=== PATIENT | male | born 1990 | race Caucasian/White ===

== ENCOUNTER 2024-01-28 15:14 | Emergency (ER) | payer MEDICAID, SELFPAY ==
--- NOTE | 2024-01-28 15:26 | PC.CC ---
Pt Mike Gutierrez is a 33 yr old male to ED on 5150 hold placed by [facility] for DTS. Pt is from [facility]. Pt placed on hold for reports that he attempted to harm himself on 01/27/24 with saji serena. Pt endorsing SI to [facility]. At this time pt is pending medical clearance for eval.
[2024-01-28 15:35] VITALS: BP 117/82; PULSE 101; TEMP 36.9; O2SAT 98
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
[2024-01-28 16:02] LABS: Basophils % (Auto) 0 % (0-2.5); Eosinophils % (Auto) 0 % (0-10); Hematocrit 42.2 % (41.0-53.0); Hemoglobin 14.3 g/dL (13.5-16.0); Immature Granulocytes % (Auto) 0 % (0-0); Immature Granulocytes Auto 0.01 Thou/mm3 (0.00-0.00); Lymphocytes # (Auto) 2.3 Thou/mm3 (1.0-4.8); Lymphocytes % (Auto) 31 % (10-50); Mean Corpuscular HGB Conc 33.9 g/dl (31.0-37.0); Mean Corpuscular Hemoglobin 30.6 pg (25.0-35.0); Mean Corpuscular Volume 90 fL (80-100); Monocytes # (Auto) 0.5 Thou/mm3 (0.0-0.8); Monocytes % (Auto) 6 % (0-12); Neutrophils # (Auto) 4.7 Thou/mm3 (1.8-7.7); Neutrophils % (Auto) 63 % (37-80); Nucleated Red Blood Cell % 0 /100 WBC (0); Platelet Count 223 Thou/mm3 (140-440); RDW Standard Deviation 38.8 fL (35.1-43.9); Red Blood Count 4.68 Miln/mm3 (4.50-5.90); White Blood Count 7.5 Thou/mm3 (3.8-10.6)
[2024-01-28 16:40] VITALS: PULSE 102; RESP 18; O2SAT 98; BMI 25.0
[2024-01-28 16:50] LABS: Alanine Aminotransferase < 7 U/L (10-49); Albumin, Serum 4.4 gm/dL (3.5-5.0); Albumin/Globulin Ratio 2.2 (1.2-2.2); Alcohol, Blood Medical < 3.0 mg/dL (0-10.0); Alkaline Phosphatase 109 U/L (46-116); Anion Gap 5 (7-16); Aspartate Amino Transferase 11 U/L (0-34); BUN/Creatinine Ratio 6 Ratio (12-20); Bilirubin,Total 0.4 mg/dL (0.3-1.2); Blood Urea Nitrogen 7 mg/dL (9-23); Calcium 9.4 mg/dL (8.3-10.6); Calcium (Corrected) 9.4 mg/dL (8.5-10.1); Carbon Dioxide 27.6 mMol/L (20.0-31.0); Chloride 107 mMol/L (98-107); Creatinine (Component) 1.1 mg/dL (0.6-1.3); Glucose 81 mg/dL (74-106); Osmolality,Calculated 276 (275-295); Potassium 4.5 mMol/L (3.4-5.1); Sodium 140 mMol/L (136-145); Total Protein 6.4 gm/dL (5.7-8.2); eGFR > 60 See Note
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
--- NOTE | 2024-01-28 17:11 | PC.NURSE ---
Pt. ambulated to with Asad MACIAS.
[2024-01-28 18:32] VITALS: BP 130/90; PULSE 90; RESP 18; TEMP 36.4; O2SAT 99
[2024-01-28 19:38] LABS: Collection Type, Urine Clean Catch; Squamous Epithelial Cell,Urine 0 /hpf (0-5)
[2024-01-28 19:56] LABS: Bilirubin,Urine Negative (Negative); Blood,Urine Negative (Negative); Clarity,Urine Clear (Clear/Hazy); Color,Urine Lt-Yellow (Lt Yel-Yel); Culture Indicated,Urine Not Indicated; Glucose, Urine Negative (Negative); Ketones,Urine Negative (Negative); Leukocyte Esterase,Urine Negative (Negative); Nitrite,Urine Negative (Negative); Protein,Urine Negative (Neg - Trace); RBC,Urine < 1 /hpf (0-3); Specific Gravity,Urine 1.012 (1.001-1.035); Urobilinogen,Urine Negative mg/dL (0.0-1.0); WBC,Urine < 1 /hpf (0-5)
[2024-01-28 20:09] LABS: Amphetamine/Methamp Scrn,U Negative (Negative); Barbiturate Screen,Urine Negative (Negative); Benzodiazepines Screen,Urine Negative (Negative); Benzoylecgonine Screen, Ur Negative (Negative); Fentanyl Screen,Urine Negative (Negative); Opiate Screen,Urine Negative (Negative); THC Screen,Urine Negative (Negative)
[2024-01-29 02:13] VITALS: BP 142/84; PULSE 87; RESP 16; TEMP 36.6; O2SAT 100
--- NOTE | 2024-01-29 02:20 | PD.EDADDENDU ---
Emergency Room Addendum Addendum Narrative: 2300: Care assumed from Sara Cantor NP. Past medical, surgical, social and family history reviewed. Vitals and home medications reviewed. Results and treatment plan discussed. I will assume the care of the patient at this time and will follow the patient, pending crisis evaluation. Please refer to the emergency department record for history and examination from initial visit. Patient was placed in observation for treatment and monitoring of psychiatric symptoms, at 2300 01/28/2024. Symptoms consist of suicidal ideation and depression. Treatment plan includes psychiatric consult, reassessments, and possible placement into psychiatric facility. The patient had access and provided personal hygiene, shower, food, water, and daily medications. 0600: Care signed out to Dr. Ling (emergency physician). Past medical, surgical, social and family history reviewed. Vitals and home medications reviewed. Results and treatment plan discussed. They will assume the care of the patient at this time and will follow the patient, pending crisis evaluation. At this time, observation has ended.
[2024-01-29 06:28] VITALS: BP 118/76; PULSE 94; RESP 18; TEMP 36.8; O2SAT 97
--- NOTE | 2024-01-29 07:45 | PC.CC ---
Addendum entered by Gary Brownlee II 01/29/24 18:41: 1211-Call to Mr. Moser to discuss outcome of assessment. Mr. Moser informed of reasoning and cobb for pt to return to [facility]. Per Mr. Moser he will staff case with superiors to determine if pt is able to return to facility with staff providing transport. 1250-Call back from Mr. Moser, [facility] will accept pt back with staff providing transport. ETA is 45 mins. Original Note: Pt Mike Gutierrez is a 33 yr old male to ED [facility]. Pt is from [facility] in [place]. [facility] placed 5150 on pt due to DTS. From hold [facility] responded to call for male pt making statements to want to harm himself. On 01/27/24 pt was making threats to harm himself with garden serean. At this time pt has been medically cleared for evaluation. Plan is for ASW to follow up with [facility] staff to confirm if pt is LPS conserved.
[2024-01-29 08:17] VITALS: BP 131/81; PULSE 82; RESP 16; TEMP 36.7; O2SAT 97
--- NOTE | 2024-01-29 10:25 | PC.NURSE ---
PATIENT CONTINUES TO SLEEP, ABLE TO BE ARROUSED, CALM AT THIS TIME. WILL CONTINUE TO MONITOR. 1 TO 1 SITTER AT BEDSIDE.
--- NOTE | 2024-01-29 10:54 | EDNOTE_ITS ---
Emergency Room Addendum <Louies Humphries - Last Filed: 01/29/24 13:02> Addendum Narrative: [address] Anderson, the previous shift emergency physician. Past medical, surgical, social and family history reviewed. Vitals and home medications reviewed. Results and treatment plan discussed. The patient was placed in ED observation care at 0600 01/29/2024, pending mental health evaluation. Please refer to the emergency department record for history and examination.? While in ED observation the pt will have access to water, food, and personal hygiene. If the pt takes home medication(s), they will be continued in ED observation. 1118: Patient has been evaluated by our ASW and has rescinded the 5150 hold. State they will safety plan with the facility patient resides at. <Parmjit Ling MD - Last Filed: 01/29/24 13:49> Addendum Narrative: [address] Anderson, the previous shift emergency physician. Pas t medical, surgical, social and family history reviewed. Vitals and home medications reviewed. Results and treatment plan discussed. The patient was placed in ED observation care at 0600 01/29/2024, pending mental health evaluation. Please refer to the emergency department record for history and examination.? While in ED observation the pt will have access to water, food, and personal hygiene. If the pt takes home medication(s), they will be continued in ED observation. 1118: Patient has been evaluated by our ASW and has rescinded the 5150 hold. State they will safety plan with the facility patient resides at. 1:48 [place] vp digital marketing social media and crm/mental health has cleared the patient a 5150. He said the patient can go back to the alf. Way came from. Diagnosis: Suicidal ideation Conditions: Stable upon discharge DC instruction: Follow-up with medical doctor. Follow-up with mental health. Return to the ER for any problem
[2024-01-29 11:49] VITALS: BP 130/87; PULSE 83; RESP 17; TEMP 36.6; O2SAT 98
--- NOTE | 2024-01-29 14:02 | PC.NURSE ---
CONTACTED ONEL BARRIOS, CONSERVATOR FOR TRANSPORT HOME. STATES HE WILL BE HERE IN APPROX 15 MINUTES. PATIENT MADE AWARE AND WILL WAIT IN ROOM FOR DISCHARGE.
[2024-01-29 14:08] VITALS: BP 132/80; PULSE 87; RESP 17; TEMP 36.4; O2SAT 98
--- NOTE | 2024-01-29 17:32 | PC.CC ---
Pt Erik Gutierrez is a 33 yr old male to ED on 5150 hold placed by [facility] for DTS. From hold [facility] dispatched to pts residential hold at [facility]. Pt verbally reporting SI. [facility] noted that pt was able to attain garden serena, on 01/27/24 and was stating he was going to harm himself. ASW met with pt at bedside. ASW introduced self and role in pt care. Pt informed for reason for encounter. Pt expressed understanding he is on 5150 hold placed by [facility] for DTS. At time of encounter pt is noted to be sitting on gurney. Pt is alert and oriented to person, place and situation. Pt noted to speak in clear even tone, keeping constant eye contact. Pts mood appears normal. Pt calm and cooperative. Pt able to confirm the events over the last 2 days. Pt unable to specify a trigger for thoughts and actions. Pt expresses that he is grateful that he is alive and states he is glad that help was sought for him. Pt states that at this time he is not suicidal or homicidal. Pt cannot identify any coping skills to reduce symptoms. Pt reports that he is currently not connected to traditional MH services. Pt denies any auditory or visual hallucinations. Pt reports he has a dx of schizophrenia, and is prescribed medications, though is uncertain about names of his medications. Pt reports compliance with his daily medication management. Pt states that he has been at [facility] for the last 2 months. Pt is from [facility] and confirms that he is conserved. Pt unable to specify type of conservatorship he is under. Pt reports most recent hospitalization was 2 months ago, in [place]. Pt states he is uncertain why he was placed. Pt states he is willing to safety plan and would like to return to [facility] to resume his daily routine. Pt informed that case will be staffed to determine outcome. Pt expressed understanding. Collateral Information: 08-Call to traffic administrator of [facility] Parmjit Monsivaisantes [phone]. ASW identified self and role in pt care and reason for call. Mr. Moser confirmed that pt is conserved through [facility], conservator name is Kip Hoyt [phone]. Per Mr. Moser he has informed on-call after hours conservator department for [facility], speaking to Daniel Mojica, who will convey information to service team. Mr Moser states that pt has been at [facility] for 40 days and is on 45 day probationary period. Per Mr. Moser pt seems to be have been triggered by recent family visit to [facility]. Mr. Moser states he is uncertain about family dynamic and and if anything transpired between pt and family members. Mr. Moser did confirm that pt did access gardening serena on an outing, though it is uncertain how pt accessed them. Mr. Moser is unable to specify type of conservatorship pt is under at this time. ASW confirmed that case will be staffed and outcome will be presented to him. Mr. Moser is in agreement with plan. 0940-Call to [facility] Precious lAbarran, case staffed. Final determination that pt does not meet criteria to remain detained on 5150 hold for DTS or GD. PT is denying SI and is able to respond to all assessment questions appropriately.Plan is for pt to return to [facility] and resume treatment and daily routine.
--- NOTE | 2024-01-30 15:08 | PC.CC ---
Pts chart accessed to update crisis log and stats.
== END 2024-01-29 14:29 | disposition home or self-care (01) ==
PROVIDERS: Nurse Practitioner Family; Emergency Provider Emergency Medicine
DX: R45.851 Suicidal ideations (principal)
CPT/HCPCS: 36415; 80053; 80307; 80320; 81001; 85025; 96127; 99284; G0480

== ENCOUNTER 2024-01-30 21:26 | Emergency (ER) | payer MEDICAID, SELFPAY ==
[2024-01-30 21:33] VITALS: BP 128/89; PULSE 97; RESP 18; TEMP 36.8; O2SAT 98; BMI 25.0
[2024-01-30 22:20] VITALS: PULSE 93; RESP 18; O2SAT 98; BMI 25.0
[2024-01-30 23:34] LABS: Basophils % (Auto) 0 % (0-2.5); Eosinophils % (Auto) 0 % (0-10); Hematocrit 41.9 % (41.0-53.0); Hemoglobin 14.2 g/dL (13.5-16.0); Immature Granulocytes % (Auto) 0 % (0-0); Immature Granulocytes Auto 0.02 Thou/mm3 (0.00-0.00); Lymphocytes # (Auto) 3.4 Thou/mm3 (1.0-4.8); Lymphocytes % (Auto) 40 % (10-50); Mean Corpuscular HGB Conc 33.9 g/dl (31.0-37.0); Mean Corpuscular Hemoglobin 30.4 pg (25.0-35.0); Mean Corpuscular Volume 90 fL (80-100); Monocytes # (Auto) 0.4 Thou/mm3 (0.0-0.8); Monocytes % (Auto) 5 % (0-12); Neutrophils # (Auto) 4.7 Thou/mm3 (1.8-7.7); Neutrophils % (Auto) 55 % (37-80); Nucleated Red Blood Cell % 0 /100 WBC (0); Platelet Count 203 Thou/mm3 (140-440); RDW Standard Deviation 38.5 fL (35.1-43.9); Red Blood Count 4.67 Miln/mm3 (4.50-5.90); White Blood Count 8.5 Thou/mm3 (3.8-10.6)
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
[2024-01-30 23:53] LABS: Acetaminophen < 2.0 mcg/mL (10.0-20.0); Alanine Aminotransferase 7 U/L (10-49); Albumin, Serum 4.2 gm/dL (3.5-5.0); Albumin/Globulin Ratio 1.8 (1.2-2.2); Alcohol, Blood Medical < 3.0 mg/dL (0-10.0); Alkaline Phosphatase 101 U/L (46-116); Anion Gap 7 (7-16); Aspartate Amino Transferase 14 U/L (0-34); BUN/Creatinine Ratio 12 Ratio (12-20); Bilirubin,Total 0.3 mg/dL (0.3-1.2); Blood Urea Nitrogen 11 mg/dL (9-23); Calcium 9.7 mg/dL (8.3-10.6); Calcium (Corrected) 9.7 mg/dL (8.5-10.1); Carbon Dioxide 28.1 mMol/L (20.0-31.0); Chloride 106 mMol/L (98-107); Creatinine (Component) 0.9 mg/dL (0.6-1.3); Estimated Creatinine Clearance 133.2 mL/min (>60); Globulin 2.4 gm/dL (2.3-3.5); Glucose 109 mg/dL (74-106); Osmolality,Calculated 281 (275-295); Potassium 3.8 mMol/L (3.4-5.1); Salicylate < 3.0 mg/dL; Sodium 141 mMol/L (136-145); Total Protein 6.6 gm/dL (5.7-8.2); eGFR > 60 See Note
[2024-01-31 00:39] LABS: Amphetamine/Methamp Scrn,U Negative (Negative); Barbiturate Screen,Urine Negative (Negative); Benzodiazepines Screen,Urine Negative (Negative); Benzoylecgonine Screen, Ur Negative (Negative); Fentanyl Screen,Urine Negative (Negative); Opiate Screen,Urine Negative (Negative); THC Screen,Urine Negative (Negative)
[2024-01-31 02:22] VITALS: BP 132/68; PULSE 94; RESP 20; TEMP 36.9; O2SAT 99
--- NOTE | 2024-01-31 06:15 | PC.NURSE ---
Soon after arrival pt was given a sandwich and two bags of chips. Ate 1400%. soon after that pt went to sleep and has been asleep since that time.
[2024-01-31 06:20] VITALS: BP 121/67; PULSE 92; RESP 15; TEMP 37.1; O2SAT 96
[2024-01-31 08:03] VITALS: BP 106/70; PULSE 84; RESP 16; TEMP 36.8; O2SAT 96
--- NOTE | 2024-01-31 08:06 | PD.EDADDENDU ---
Emergency Room Addendum Addendum Narrative: 0600: Care assumed from Dr. De La Vega, the previous shift emergency physician. Past medical, surgical, social and family history reviewed. Vitals and home medications reviewed. I will assume the care of the patient at this time, pending mental health evaluation and final disposition. Please refer to the emergency department record for history and examination from initial visit.? EMS notes reviewed by me. Patient was brought in from a [facility] for suicidal ideation. Nursing notes reviewed by me. Vital signs reviewed by me. [facility] records reviewed by me. Patient was here 01/28/2024 placed on a 5150 hold for suicidal ideation. Was evaluated by mental health and 5150 was rescinded yesterday 01/30/2024 and discharged back to the fci. Patient has been accepted by Dr. Holland at [facility]. 1350: EMS here to transfer the patient. Observation care ended at this time.
--- NOTE | 2024-01-31 09:26 | PC.CC ---
Pt Mike Gutierrez is a 33 yr old to [facility] Emergency Department on [address] [facility] for DTS/O. From hold local lawn enforcement responded to pts residential shelter, for pt making threats to harm himself and facility staff. Pt has been evaluated and medically cleared by emergency department provider. Pt toxicology screening negative for all substances. [place] Screening , high risk. ASW met with pt at bedside, introducing self and role in pt care. ASW explained reason for encounter and limitations of confidentiality. Pt expressed understanding and is agreeable to meet with ASW at this time. Pt presents calm, speaks in clear blunted tone with flat affect. Pt noted to make sporadic eye contact. Pt responds appropriate to assessment questions. Pt confirmed events that resulted in detainment. Pt with dx of schizoaffecitve d/o bipolar type. Pt is prescribed MH medications with reported compliance. Pt initially hesitant and delayed in response to current SI, confirming that he is currently experiencing SI. Pt unclear on plan or intent to harm himself. Pt denying HI at this time. Pt confirms auditory hallucinations, but states he is unable to clearly understand what is being said. Pt reports auditory stimuli was much more intense on date of presentation 01/30/24. Pt seen on 01/29/2024 in emergency department for SI, with public relations writer being able to safety plan. Due to pt being unable to adhere to safety plan, pt will remain on hold pending placement in LPS facility. Pt is on LPS conservatorship through [facility]. Pts conservator is Kip Hoyt [phone].
--- NOTE | 2024-01-31 09:54 | PC.CC ---
Pt Mike Gutierrez is a 33 yr old to [facility] Emergency Department on [address] [facility] for DTS/O. From hold local lawn enforcement responded to pts residential f[facility], for pt making threats to harm himself and facility staff. Pt has been evaluated and medically cleared by emergency department provider. Pt toxicology screening negative for all substances. [place] Screening , high risk. ASW met with pt at bedside, introducing self and role in pt care. ASW explained reason for encounter and limitations of confidentiality. Pt expressed understanding and is agreeable to meet with ASW at this time. Pt presents calm, speaks in clear blunted tone with flat affect. Pt noted to make sporadic eye contact. Pt responds appropriate to assessment questions. Pt confirmed events that resulted in detainment. Pt with dx of schizoaffecitve d/o bipolar type. Pt is prescribed MH medications with reported compliance. Pt initially hesitant and delayed in response to current SI, confirming that he is currently experiencing SI. Pt unclear on plan or intent to harm himself. Pt denying HI at this time. Pt confirms auditory hallucinations, but states he is unable to clearly understand what is being said. Pt reports auditory stimuli was much more intense on date of presentation 01/30/24. Pt has been previously placed on 5150 hold and placed in LPS facility. Most recent hospitalization 10/11/2023, for unknown length of time. Pt seen on 01/29/2024 in emergency department for SI, with copy writer being able to safety plan. Due to pt being unable to adhere to safety plan, pt will remain on hold pending placement in LPS facility. Pt is on LPS conservatorship through [facility]. Pts conservator is Kip Hoyt [phone].
--- NOTE | 2024-01-31 11:00 | PC.NURSE ---
REPORT GIVEN NURSE AT [facility]. PATIENT ACCEPTED TO DR. ANSARI, UNIT [address].
[2024-01-31 12:04] VITALS: BP 110/74; PULSE 87; RESP 16; TEMP 36.9; O2SAT 97
--- NOTE | 2024-01-31 13:55 | PC.CC ---
Pt Mike Gutierrez on 5150 for DTS/O placed by [facility]. ASW will contact [facility], for the following reasons: 1. Assess type of conservatorship pt is under? 2. Assess if pt conservatorship is still active. 0814-call to [facility] after hours [phone]. ASW spoke with Darlene. Information taken and message will be relayed to on-call conservator. 0820-Call from Kameron De La Rosa with [facility]. Pts conservatorship is active for 1 yr, currently pending longterm conservatorhip paperwork. Pt is an LPS conservatee. 0840-ASW consulted with SHINGLER Daysi Peters. Pt to remain on hold. ASW will support current hold with assessment note. The following [facility] facilities were contacted via [employer] and fax for placement: [facility] Kameron informed that pt will likely remain on hold and placed in LPS setting. Request follow up call to confirm. 0908-Call from Parmjit Moser with [facility], requesting update. Informed that pt will remain on hold. Parmjit request follow up call for outcome. Pt has been accepted to [facility] , Dr. Holland. Pt to go to [address]. PCS and face sheet uploaded to [employer]. 1146-Call to [facility], transport ETA set for 1350. 1211-Call from Parmjit Moser, provided update of acceptance. Per Parmjit he will follow up with pts conservator. 1305-Message left for on-call conservator with [facility].
== END 2024-01-31 14:03 ==
PROVIDERS: Emergency Medicine; Emergency Provider Emergency Medicine
DX: R45.851 Suicidal ideations (principal); F20.9 Schizophrenia, unspecified
CPT/HCPCS: 36415; 80053; 80307; 80320; 80329; 83735; 85025; 96127; 99285; G0480

== ENCOUNTER 2024-02-23 16:14 | Emergency (ER) | payer MEDICAID, SELFPAY ==
--- NOTE | 2024-02-23 16:22 | PC.CC ---
Patient was BIBA on a 5150-hold for Danger to Self by [facility] Mobile Crisis Team Sara.
--- NOTE | 2024-02-23 16:26 | PD.EDPSYCH ---
ED Psych RME/HPI General Chief Complaint: Psychiatric Symptoms Stated Complaint: HOLD Time Seen by Provider: 02/23/24 16:22 Arrival date/time: 02/23/24 16:14 RME / HPI RME / HPI Narrative: 33-year-old male patient with significant history of mental health problem, already in a mental facility, was sent to us for 5150 hold. According to him today he is hearing voices, and very disturbed and now planning to hurt himself by going to the river and drowning. Denies any homicidal ideation. Currently taking clozapine with good compliance. Related Data Allergies Allergy/AdvReac Type Severity Reaction Status Date / Time No Known Allergies Allergy Verified 02/23/24 18:02 Review of Systems Review of Systems Narrative Review of Systems: Review of system reviewed and within normal limits except mentioned in HPI ED Exam Narrative Physical exam: VITAL SIGNS: Reviewed. GENERAL APPEARANCE: Alert and interactive, follows commands, no acute distress, HEAD AND FACE: Non-traumatic. ENT: PERRL, pink conjunctivitis, eyelid no trauma, Mucous membrane moist. NECK: Supple, nontender, no nuchal rigidity. CHEST: No tenderness, no crepitus, no paradoxical movement, no retractions. LUNGS: Clear, well ventilated, symmetric, no rales, no wheezing, no ronchi, no stridor, good breath sounds bilaterally. HEART: Regular rate, regular rhythm, no murmur, no gallops. ABDOMEN: Soft, positive bowel sounds, nondistended, no guarding, nontender, no rebound, no masses, RECTAL: Deferred. GENITAL: Deferred. NEUROLOGICAL: Gross motor function intact sensory function intact, Appropriate for age. MUSCULOSKELETAL: low back nontender, full range of motion. EXTREMITIES: Nontender, full range of motion. SKIN: Color pink, dry, no rash, no lacerations, no abrasions, no contusions. LYMPHATICS: Deferred. Course Quality Measures none Orders Category Date Time Status Acetaminophen Stat Lab 02/23/24 16:41 Completed Alcohol, Blood Medical Stat Lab 02/23/24 16:41 Completed Basic Metabolic Panel Stat Lab 02/23/24 16:41 Completed CBC Stat Lab 02/23/24 16:41 Completed Drug Screen,Urine Stat Lab 02/23/24 17:24 Completed Salicylate Stat Lab 02/23/24 16:41 Completed Urinalysis Stat Lab 02/23/24 17:24 Completed ARIPiprazole [Abilify] Med 02/23/24 22:46 Discontinued 5 mg PO X1 ONE DiphenhydrAMINE [Benadryl] Med 02/23/24 22:46 Discontinued 50 mg PO X1 ONE cloZAPine [Clozaril] Med 02/23/24 22:45 Discontinued 50 mg PO X1 ONE Vital Signs Vital signs: Vital Signs Temperature 98 F 02/23/24 16:27 Pulse Rate 115 H 02/23/24 16:27 Respiratory Rate 18 02/23/24 16:27 Blood Pressure 121/79 02/23/24 16:27 Pulse Oximetry (%) 97 02/23/24 16:27 Oxygen Delivery Method Room Air 02/23/24 16:27 Psych MDM Narrative MDM Narrative:: 33-year-old male patient with significant history of mental health problem, already in a mental facility, was sent to us for 5150 hold. According to him today he is hearing voices, and very disturbed and now planning to hurt himself by going to the river and drowning. Denies any homicidal ideation. Currently taking clozapine with good compliance. Care transferred to Dr. Anderson at 11:15 PM for final disposition Patient data External records reviewed:: EMS form Clinical information provided by:: patient and EMS Social determinants that could affect healthcare access:: none Patient has the following chronic illnesses:: Chronic schizophrenia How is presenting disease/condition affected by chronic disease/condition?: exacerbated by Evaluation data The following diagnostics were reviewed and interpreted by me:: lab results Lab and/or radiology exams considered but not ordered:: None Interpretation Summary: Patient's workup today all came back unremarkable, negative for toxicity drug Medications / Prescriptions Medications or Prescriptions considered but not ordered:: None Medication administrations:: Medication Administration History Discontinued Medications Aripiprazole (Aripiprazole 5 Mg Tablet) 5 mg PO X1 ONE Stop: 02/23/24 22:47 Last Admin: 02/23/24 23:38 Dose: 5 mg Documented By: DAWIT Clozapine (Clozapine 50 Mg Tablet) 50 mg PO X1 ONE Stop: 02/23/24 22:46 Last Admin: 02/23/24 23:46 Dose: Not Given Documented By: DAWIT Non-Admin Reason: Medication Not Available Diphenhydramine HCl (Diphenhydramine 25 Mg Capsule) 50 mg PO X1 ONE Stop: 02/23/24 22:47 Last Admin: 02/23/24 22:59 Dose: 50 mg Documented By: DAWIT Loomis clozapine and Abilify Consultations Consultation(s) initiated? (list below): Yes Consultation #1 (Physician, Specialty, Details): Patient was referred to crisis personnel/social worker clinical for evaluation regarding placement Diagnosis Psych Differential Diagnosis: acute psychosis, chronic schizophrenia and suicidal ideation Most likely diagnosis given after review of the tests above:: Suicidal ideation Admission Indicated Admission indicated?: indicated Explain why admission is indicated or not indicated:: Transferred to [facility] Admission Request Was there a request for admission?: No Disposition Plan Disposition Plan: Transfer Discharge Plan Plan Patient Disposition: [facility] Prescriptions/Referrals Referrals: No Primary/Family,Physician [Primary Care Provider] - In 1 week Problem List Clinical Impression: Suicidal ideation, Chronic schizophrenia Patient/Caregiver Discharge Instructions Print Language: Greek Stand Alone Forms: Kamryn Award Info., Patient Portal Info Letter
[2024-02-23 16:27] VITALS: BP 121/79; PULSE 115; RESP 18; TEMP 36.6; O2SAT 97
[2024-02-23 16:37] VITALS: PULSE 78; RESP 18; O2SAT 99; BMI 25.0
--- NOTE | 2024-02-23 16:40 | PC.NURSE ---
Patient presents via ambulance stretcher for c/o SI, denies HI. Patient comes from [facility] and made statements of self harm to staff. Patient is alert and oriented, ambulatory w/o assistance. Patient with hx of previous SI attempt, and has a plan of jumping into the river and drowning. Patient updated with plan of care.
[2024-02-23 17:02] LABS: Basophils % (Auto) 0 % (0-2.5); Eosinophils % (Auto) 0 % (0-10); Hematocrit 45.3 % (41.0-53.0); Hemoglobin 15.4 g/dL (13.5-16.0); Immature Granulocytes % (Auto) 0 % (0-0); Immature Granulocytes Auto 0.02 Thou/mm3 (0.00-0.00); Lymphocytes # (Auto) 2.4 Thou/mm3 (1.0-4.8); Lymphocytes % (Auto) 30 % (10-50); Mean Corpuscular Hemoglobin 30.4 pg (25.0-35.0); Mean Corpuscular Volume 90 fL (80-100); Monocytes # (Auto) 0.5 Thou/mm3 (0.0-0.8); Monocytes % (Auto) 6 % (0-12); Neutrophils # (Auto) 5.2 Thou/mm3 (1.8-7.7); Neutrophils % (Auto) 64 % (37-80); Nucleated Red Blood Cell % 0 /100 WBC (0); Platelet Count 235 Thou/mm3 (140-440); RDW Standard Deviation 39.4 fL (35.1-43.9); Red Blood Count 5.06 Miln/mm3 (4.50-5.90)
--- NOTE | 2024-02-23 17:18 | PC.NURSE ---
Patient was informed of need to collect UA sample, per patient does not want to provide urine and states he needs to drink lots of water prior. Water was provided to patient.
--- NOTE | 2024-02-23 17:27 | PC.CC ---
Addendum entered by Na Paez 02/24/24 11:28: 1128 ASW arranged transportation with [facility] for 1300 hot die picker time. Addendum entered by Na Paez 02/24/24 11:23: 1111 Kandis with [facility] called and requested a short-lentz. Kandis reported that the short-lentz was not acceptable and needed it edited. ASW informed Kandis that we would need to cancel acceptance as I did not have permission to edit a [facility] Short-Lentz. ASW made contact with Keri with [facility] and they reported the bed was still available and willing to accept the patient. Receiving doctor is Dr. Morales and he will be going into [address]. ASW arranging transportation. Addendum entered by Na Paez 02/24/24 10:57: 1050 Kandis with [facility] called to notify that patient was a\ccepted pending Negative COVID, accepting is Dr. Barry, Unit [address]. ASW arranging transportation and will be submitting negative COVID. Addendum entered by Na Paez 02/24/24 10:47: 1047 [facility] and [facility] are both reviewing the packet for placement. Addendum entered by Na Paez 02/24/24 09:59: 0958 [facility]. ASW sent referral for LPS placement via [employer] [facility]. Addendum entered by Na Paez 02/23/24 18:27: Na VICTORIA called the [facility] they do not have an on-call or contact centre operator and are only open from 8am-5pm. Addendum entered by Na Paez 02/23/24 18:25: CHEIKHW, made telephone contact with [facility] twice with no success to inform him documentation for conservatorship has not been received. Original Note: Patient presents to the ED on a 5150-Hold Danger to Self by [facility] Superintendent Building, Sara Amezquita. Na VICTORIA made sbid-ta-buat contact with patient. ASW introduced self, role, and reason for visit. Patient appeared alert and oriented to self, location, and situation. ASW discussed limits of confidentiality with patient. Patient mood appeared depressed throughout assessment; his behavior appeared disinhibited with flat affect. Patient?s thought process was linear and organized. Patient reports he continues to have suicidal ideations with plan and intention. Patient stated, I will use gardening serena and cut my throat or drown myself in the river. Patient reports he was recently released from a 5150-hold approximately a week ago from [facility]. Patient reports he is having auditory hallucinations as he is hearing people. Patient denied visual hallucinations and homicidal ideations. Patient stated he is conserved through [facility]. The following information is collateral information from conservator, Kip Hoyt. He reports that the patient was recently released from [facility]. Patient is currently on temporary conservatorship and patient is contesting it. Patient is received mental health services through [facility] where patient is residing. ASW will be sending referral to [facility] Facilities upon receiving conservatorship documents. ASW provided discharge plan to Dr. Akins, ALESSANDRA Cantor, bailer tenders supervisor Sara, and SUSIE Aguilar.
[2024-02-23 17:39] LABS: Collection Type, Urine Clean Catch; Squamous Epithelial Cell,Urine 0 /hpf (0-5)
[2024-02-23 17:43] LABS: Bilirubin,Urine Negative (Negative); Blood,Urine Negative (Negative); Clarity,Urine Clear (Clear/Hazy); Color,Urine Lt-Yellow (Lt Yel-Yel); Glucose, Urine Negative (Negative); Ketones,Urine Negative (Negative); Leukocyte Esterase,Urine Negative (Negative); Nitrite,Urine Negative (Negative); PH,Urine 6.5 (5.0-7.0); Protein,Urine Trace (Neg - Trace); RBC,Urine 3 /hpf (0-3); Specific Gravity,Urine 1.019 (1.001-1.035); Urobilinogen,Urine Negative mg/dL (0.0-1.0); WBC,Urine 2 /hpf (0-5)
[2024-02-23 17:53] LABS: Amphetamine/Methamp Scrn,U Negative (Negative); Barbiturate Screen,Urine Negative (Negative); Benzodiazepines Screen,Urine Negative (Negative); Benzoylecgonine Screen, Ur Negative (Negative); Fentanyl Screen,Urine Negative (Negative); Opiate Screen,Urine Negative (Negative); THC Screen,Urine Negative (Negative)
[2024-02-23 18:00] VITALS: BP 130/89; PULSE 104; RESP 18; TEMP 36.7; O2SAT 99
[2024-02-23 18:12] LABS: Acetaminophen < 2.0 mcg/mL (10.0-20.0); Alcohol, Blood Medical < 3.0 mg/dL (0-10.0); Anion Gap 8 (7-16); BUN/Creatinine Ratio 11 Ratio (12-20); Blood Urea Nitrogen 10 mg/dL (9-23); Calcium 9.7 mg/dL (8.3-10.6); Carbon Dioxide 27.7 mMol/L (20.0-31.0); Chloride 106 mMol/L (98-107); Creatinine (Component) 0.9 mg/dL (0.6-1.3); Estimated Creatinine Clearance 106.3 mL/min (>60); Glucose 93 mg/dL (74-106); Osmolality,Calculated 282 (275-295); Potassium 3.9 mMol/L (3.4-5.1); Salicylate < 3.0 mg/dL; Sodium 142 mMol/L (136-145); eGFR > 60 See Note
--- NOTE | 2024-02-23 19:00 | PC.NURSE ---
First contact with pt in Room 6, pt in gown, room modified for safety, health safety instructor at bedside.
[2024-02-23 20:00] VITALS: BP 118/88; PULSE 95; RESP 18; TEMP 36.8; O2SAT 98
[2024-02-23 22:00] VITALS: BP 125/81; PULSE 98; RESP 18; TEMP 36.7; O2SAT 97
--- NOTE | 2024-02-23 22:14 | PC.NURSE ---
Pt provided with a sandwich and PO fluids, as requested, observed feeding self independently. food technologist remains at bedside.
[2024-02-23] MEDS: DiphenhydrAMINE 25 MG CAPSULE 50 MG PO (22:59)
--- NOTE | 2024-02-23 23:30 | PC.NURSE ---
Addendum entered by Teresa Tai RN 02/23/24 23:54: Pt provided with another sandwich, as requested, observed feeding self independently, ate 100% of sandwich. director of quality control remains at bedside. Original Note: Pt provided with another sandwich, as requested, observed feeding self independently, ate 100% of sandwich.
[2024-02-23] MEDS: ARIPiprazole 5 MG TABLET PO (23:38)
--- NOTE | 2024-02-23 23:47 | PD.EDADDENDU ---
Emergency Room Addendum Addendum Narrative: 2300: Care assumed from Sara Cnator NP. Past medical, surgical, social and family history reviewed. Vitals and home medications reviewed. Results and treatment plan discussed. I will assume the care of the patient at this time and will follow the patient, pending crisis evaluation. Please refer to the emergency department record for history and examination from initial visit. Patient is medically clear for crisis evaluation. OBSERVATION NOTE: The patient was placed in ED observation care at 02/23/24 at 2300 hours. The patient was placed in ED observation care because of pending crisis evaluation. The patients past medical history, social history, and family history were reviewed. The plan of care will include serial examinations. 0600: Care signed out to Dr. Motley (emergency physician). Past medical, surgical, social and family history reviewed. Vitals and home medications reviewed. Results and treatment plan discussed. They will assume the care of the patient at this time and will follow the patient, pending crisis evaluation. At this time, observation has ended.
[2024-02-24] VITALS (7 sets, daily range): BP systolic 108–134; BP diastolic 75–95; PULSE 95–123; RESP 16–20; TEMP 36.4–36.9; O2SAT 96–99
--- NOTE | 2024-02-24 05:57 | EDNOTE_ITS ---
Emergency Room Addendum Addendum Narrative: 0600: Care assumed from Dr. Anderson, the previous shift emergency physician. Past medical, surgical, social and family history reviewed. Vitals and home medications reviewed. I will assume the care of the patient at this time, pending psychiatric evaluation. The patient was placed in ED observation care at 02/24/2024 at 0600 hours. The patient was placed in ED observation care because of undifferentiated decompensated behavioral health evaluation, no behavioral health bed available. The patients past medical history, social history, and family history were reviewed. The plan of care will include serial examinations. Please refer to the emergency department record for history and examination.? While in ED observation the patient will have access to water, food, and personal hygiene. If the patient takes home medication(s), they will be continued in ED observation. Physical exam by me shows patient under no acute distress at this time. 1030: Patient accepted to [facility]. 1310: Patient picked up by EMS and left to [facility]. ED observation care ended at 02/24/2024 at 1310 hours.
--- NOTE | 2024-02-24 09:01 | PC.NURSE ---
Pt states that he is no longer having any thoughts of wanting to harm himself. When asked about his plan to go into the river pt denies ever having this plan. Pt does state that he did try to kill himself a week a go with garden serena, states he tried to stab them into his neck.
--- NOTE | 2024-02-24 10:14 | PC.NURSE ---
SPOKE W/KIRTI AT [facility], SHE IS WANTED CLARIFICATION ABOUT CONSERVATORSHIP AND PT BEING ON A HOLD. NOTIFIED SW WHO WILL CALL HER BACK
--- NOTE | 2024-02-24 10:49 | PC.NURSE ---
SPOKE WITH INTAKE AT [facility] FOR REPORT ON PT, THEY WILL PRESENT THE CASE AND CALL BACK.
--- NOTE | 2024-02-27 08:41 | PC.CC ---
4279-Call from Parmjit Moser, district administrator with [facility], request call back at [phone]. 0834-ASW spoke with Parmjit Moser with [facility], ASW provided requested information for LPS facility pt D/c to. ASW provided phone number and facility address to [facility] in [place].
== END 2024-02-24 13:00 ==
PROVIDERS: Nurse Practitioner Family; Emergency Provider Emergency Medicine
DX: Z04.6 Encounter for general psychiatric examination, requested by authority (principal); R45.851 Suicidal ideations; F20.9 Schizophrenia, unspecified
CPT/HCPCS: 36415; 80048; 80307; 80320; 80329; 81001; 85025; 87811; 90839; 96127; 99285; A9270; G0480